=== PATIENT | male | born 1935 | race Caucasian/White ===

== ENCOUNTER 2017-05-31 09:34 | Outpatient (CLI) | payer MEDICARE, BC ==
--- NOTE | 2017-05-31 15:26 | NM ---
WHOLE BODY BONE SCAN: Date: 05/31/17 HISTORY: Malignant neoplasm of prostate. COMPARISON: None. TECHNIQUE: Patient was administered 31.40 mCi of technetium-99m MDP intravenously. After appropriate delay, whol e body imaging was performed. FINDINGS: There is expected distribution of the radiotracer. Uptake in the right neck, bilateral shoulders, roberta ateral hands and wrists, bilateral knees, bilateral feet and ankle, are felt to be due to degenerativ e change. There is no scintigraphic evidence of osseous metastasis. Limited evaluation of the sacrum and coccyx due to retained radiotracer in the urinary bladder, despi te voiding. Urinary contamination is noted. IMPRESSION: No scintigraphic evidence of osseous metastasis. POS: [facility]
== END 2017-05-31 09:35 | disposition home or self-care (01) ==
LOC: NM 09:34
PROVIDERS: ATTEND Urology
DX: C61 Malignant neoplasm of prostate (principal)
CPT/HCPCS: 78306; A9503

== ENCOUNTER 2018-12-17 19:30 | Outpatient (CLI) | payer MEDICARE, BC | END 2018-12-17 19:31 | disposition home or self-care (01) | LOC: SLEEPLAB 19:30 | PROVIDERS: ATTEND Internal Medicine | DX: G47.33 Obstructive sleep apnea (adult) (pediatric) (principal); R09.89 Other specified symptoms and signs involving the circulatory and respiratory systems; I11.0 Hypertensive heart disease with heart failure; I50.9 Heart failure, unspecified; G31.84 Mild cognitive impairment of uncertain or unknown etiology; R06.83 Snoring; G47.00 Insomnia, unspecified; G47.10 Hypersomnia, unspecified | CPT/HCPCS: 95811 ==

== ENCOUNTER 2023-07-16 21:53 | Emergency (ER) | payer MEDICARE ==
[2023-07-16 23:02] LABS: #Basophils 0.03 10x3/uL (0.0-0.2); %Basophils 0.5 % (0.0-1.0); %Eosinophils 4.4 % (0.0-10.0); %Lymphocytes 15.7 % (21.0-51.0); %Monocytes 8.4 % (0.0-10.0); %Neutrophils 70.7 % (42.0-75.0); Hematocrit 28.9 % (42.0-52.0); Hemoglobin 9.4 g/dL (14.0-18.0); Mean Corpuscular HGB CONC 32.5 g/dL (32.0-36.0); Mean Corpuscular Volume 67.5 fL (78.0-98.0); Platelet Count 179 10x3/uL (130-400); RBC Distribution Width 16.7 % (11.5-14.5); Red Blood Cell (RBC) Count 4.28 mill/uL (4.70-6.10)
[2023-07-16 23:23] LABS: Elliptocytes SLIGHT = 2-5 cells HPF (0-1); Microcytosis SLIGHT = 6-15 cells HPF (0-5); Platelet Adequacy Comment Platelets Normal; Tear Drops SLIGHT = 2-5 cells HPF (0-1)
[2023-07-16 23:35] LABS: ALT (SGPT) 13 U/L (8-55); AST (SGOT) 17 U/L (5-34); Albumin 3.9 g/dL (3.4-4.8); Alkaline Phosphatase 53 U/L (40-110); Anion Gap 12 mmol/L (10-20); BUN (Urea Nitrogen) 16 mg/dL (8.4-25.7); Bilirubin, Total 0.9 mg/dL (0.2-1.2); Calc. Creatinine Clearance 0 mL/min (70-130); Calcium 9.3 mg/dL (7.8-10.44); Carbon Dioxide 26 mmol/L (23-31); Chloride 105 mmol/L (98-107); Estimated GFR 61; Globulin 2.9 g/dL (2.4-3.5); Glucose 131 mg/dL (83-110); Lipase 49 U/L (8-78); Potassium 3.3 mmol/L (3.5-5.1); Protein, Total 6.8 g/dL (5.8-8.1); Sodium 140 mmol/L (136-145); Troponin I 0.027 ng/mL (< 0.028)
== END 2023-07-17 00:29 | disposition home or self-care (01) ==
LOC: ERS 21:53
DX: E86.0 Dehydration (principal); I10 Essential (primary) hypertension; Z87.891 Personal history of nicotine dependence
CPT/HCPCS: 36415; 71045; 72170; 80053; 83690; 83735; 84484; 85025; 93005

== ENCOUNTER 2024-12-09 14:37 | Emergency (ER) | payer MEDICARE | END 2024-12-09 14:58 | disposition home or self-care (01) | LOC: ERS 14:37 | DX: S09.90XA Unspecified injury of head, initial encounter (principal); I10 Essential (primary) hypertension; W06.XXXA Fall from bed, initial encounter; Z87.891 Personal history of nicotine dependence | CPT/HCPCS: 99283 ==